=== PATIENT | female | born 1955 | race Caucasian/White ===

== ENCOUNTER 2016-10-21 11:39 | Emergency (ER) | payer MEDICAID ==
[2016-10-21 11:50] VITALS: BMI 28.6
[2016-10-21 12:00] LABS: BASO # 0.1 K/uL (0.0-0.2); BASO % 0.6 % (0.0-2.0); EOS # 0.4 K/uL (0.0-0.7); EOS % 4.7 % (0.0-4.0); HEMATOCRIT 38.6 % (34.0-47.0); LYMPH % 35.5 % (20.0-40.0); MEAN CELL VOLUME 90.9 fL (81.0-99.0); MEAN CORPUSCULAR HEMOGLOBIN 30.3 pg (27.0-31.0); MEAN CORPUSCULAR HGB CONC 33.4 g/dL (33.0-37.0); MONO # 0.6 K/uL (0.0-0.8); MONO % 6.6 % (0.0-10.0); RED CELL DISTRIBUTION WIDTH 14.3 % (11.5-14.5); WHITE BLOOD COUNT 8.5 K/uL (4.8-10.8)
[2016-10-21 12:26] LABS: CHLORIDE 100 mmol/L (98-107)
[2016-10-21 12:27] LABS: POTASSIUM 4.4 mmol/L (3.6-5.2); SODIUM 137 mmol/L (132-148)
[2016-10-21 12:29] LABS: ALB/GLOB RATIO 1.1 (1.0-2.1); ALKALINE PHOSPHATASE 47 U/L (38-126); AST/SGOT 24 U/L (14-36); BILIRUBIN,TOTAL 0.4 mg/dL (0.2-1.3); BLOOD UREA NITROGEN 17 mg/dL (7-17); CARBON DIOXIDE 26 mmol/L (22-30); GFR AFRICAN-AMERICAN > 60; TOTAL PROTEIN 7.5 g/dL (6.3-8.3)
[2016-10-21 12:30] LABS: ALT/SGPT 36 U/L (9-52); CALCIUM 8.9 mg/dl (8.6-10.4); GLUCOSE,RANDOM 120 mg/dL (65-105)
--- NOTE | 2016-10-21 13:55 | C.PDOC ---
History Of Present Illness 61 year old female presents to the ED with complaints of sharp non-radiating right sided chest pain since yesterday. Patient states she has also had a cough for several days which is increasingly productive of white/mckee sputum. She notes the chest pain is mostly to the right mid-upper area and she has not taken anything for it. Denies fever, chills, nausea, vomiting, SOB, or any other complaints at this time. Time Seen by Provider: 10/21/16 13:41 Chief Complaint (Nursing): Chest Pain History Per: Patient History/Exam Limitations: no limitations Onset/Duration Of Symptoms: Days Current Symptoms Are (Timing): Still Present Severity: Mild Quality: Sharp Associated Symptoms: denies: Nausea, Diaphoresis Past Medical History Reviewed: Historical Data, Nursing Documentation, Vital Signs Vital Signs: Last Vital Signs Temp 97.8 F 10/21/16 16:53 Pulse 83 10/21/16 16:53 Resp 24 10/21/16 16:53 BP 121/81 10/21/16 16:53 Pulse Ox 97 10/23/16 18:08 - Medical History PMH: HTN Surgical History: Cholecystectomy Family History: States: Unknown Family Hx - Social History Hx Alcohol Use: No Hx Substance Use: No - Immunization History Hx Tetanus Toxoid Vaccination: No Hx Influenza Vaccination: No Hx Pneumococcal Vaccination: No Review Of Systems Except As Marked, All Systems Reviewed And Found Negative. Constitutional: Negative for: Fever, Chills Cardiovascular: Positive for: Chest Pain. Negative for: Palpitations Respiratory: Positive for: Cough, Sputum. Negative for: Shortness of Breath Gastrointestinal: Negative for: Nausea, Vomiting Musculoskeletal: Negative for: Back Pain Physical Exam - Physical Exam Appears: Non-toxic, No Acute Distress Skin: Normal Color, Warm, Dry Head: Atraumatic, Normacephalic Eye(s): bilateral: Normal Inspection Oral Mucosa: Moist Chest: Symmetrical, No Deformity, Tenderness (+Diffuse left sided chest wall tenderness) Cardiovascular: Rhythm Regular, No Murmur Respiratory: No Accessory Muscle Use, No Rales, Rhonchi (+Diffuse rhonchi), Wheezing (+Scattered wheezing) Gastrointestinal/Abdominal: Soft, No Tenderness, No Distention Extremity: Normal ROM, No Pedal Edema Neurological/Psych: Oriented x3, Normal Speech, Normal Cognition ED Course And Treatment - Laboratory Results Result Diagrams: 10/21/16 11:55 10/21/16 11:55 ECG: Interpreted By Me, Viewed By Me ECG Rhythm: Sinus Rhythm, PVC Interpretation Of ECG: +Poor R wave progression. Rate From EC O2 Sat by Pulse Oximetry: 97 (Room air) Pulse Ox Interpretation: Normal - Radiology CXR: Viewed By Me, Read By Radiologist CXR Interpretation: Yes: Other (Mild venous congestion.). No: Infiltrates Progress Note: CXR, EKG, and Blood work ordered and reviewed. patient treated with DuoNeb and Toradol. Disposition - Disposition Referrals: Tevin Gifford MD [Staff Provider] - Disposition: HOME/ ROUTINE Disposition Time: 17:48 Condition: GOOD Additional Instructions: return to the ED for any new or worsening symptoms Prescriptions: Moxifloxacin [Avelox Tab] 1 tab PO DAILY #6 tab Naproxen [Naprosyn] 1 tab PO BID PRN #25 tab PRN Reason: Pain Prednisone 1 tab PO DAILY #4 tablet Albuterol HFA [Ventolin HFA 90 mcg/actuation (8 g)] 1 puff IH QID PRN #1 puff PRN Reason: Cough Instructions: Chronic Lung Disease and Infection Prevention (ED), COPD ( Chronic Obstructive Pulmonary Disease) (ED), How to Stop Smoking (ED) Print Language: AZERI - Clinical Impression Clinical Impression: COPD exacerbation - Scribe Statement The provider has reviewed the documentation as recorded by the Scribe Kita Haines. Provider Attestation: All medical record entries made by the Scribe were at my direction and personally dictated by me. I have reviewed the chart and agree that the record accurately reflects my personal performance of the history, physical exam, medical decision making, and the department course for this patient. I have also personally directed, reviewed, and agree with the discharge instructions and disposition.
[2016-10-21] MEDS ORDERED: Albuterol-Ipratrop 3 mg / 0.5 (3 ml) UD IH SCH (14:00)
[2016-10-21] MEDS ORDERED: Albuterol-Ipratrop 3 mg / 0.5 (3 ml) UD ONE (14:12)
--- NOTE | 2016-10-21 14:17 | RAD ---
PROCEDURE: CHEST RADIOGRAPH, 1 VIEW HISTORY: chest pain COMPARISON: None available. FINDINGS: LUNGS: Mild venous congestion. PLEURA: No pneumothorax or pleural fluid seen. CARDIOVASCULAR: Normal. OSSEOUS STRUCTURES: No significant abnormalities. VISUALIZED UPPER ABDOMEN: Normal. OTHER FINDINGS: None. IMPRESSION: Mild venous congestion.
[2016-10-21 16:54] VITALS: BP 121/81; PULSE 83; RESP 24; TEMP 97.8
[2016-10-21 17:50] VITALS: O2SAT 97
--- NOTE | 2016-10-22 10:48 | CARD ---
APPROVED REPORT EKG Measurement Heart [id number] MD [id number] [id number] <Conclusion> Sinus rhythm with fusion complexes Anterior infarct, age undetermined Abnormal ECG
== END 2016-10-21 18:23 | disposition home or self-care (01) ==
LOC: C.ER 11:39
DX: J44.1 Chronic obstructive pulmonary disease with (acute) exacerbation (principal)
CPT/HCPCS: 71010; 80053; 84484; 85025; 93005; 96374; 99285; J1885

== ENCOUNTER 2016-12-02 15:46 | Emergency (ER) | payer MEDICAID ==
[2016-12-02 15:46] VITALS: BMI 28.6
[2016-12-02 15:54] VITALS: O2SAT 98
[2016-12-02] MEDS ORDERED: Sodium Chloride 0.9% 500 ML IV ONE (16:38)
[2016-12-02] MEDS ORDERED: Sodium Chloride 0.9% 1,000 ML ONE (16:49)
[2016-12-02 16:55] LABS: BASO % 0.4 % (0.0-2.0); EOS # 0.4 K/uL (0.0-0.7); EOS % 4.4 % (0.0-4.0); HEMATOCRIT 39.2 % (34.0-47.0); LYMPH # 3.3 K/uL (1.0-4.3); LYMPH % 37.5 % (20.0-40.0); MEAN CELL VOLUME 91.1 fL (81.0-99.0); MEAN CORPUSCULAR HEMOGLOBIN 30.5 pg (27.0-31.0); MEAN CORPUSCULAR HGB CONC 33.5 g/dL (33.0-37.0); MEAN PLATELET VOLUME 8.5 fL (7.2-11.7); MONO # 0.5 K/uL (0.0-0.8); MONO % 5.5 % (0.0-10.0); RED CELL DISTRIBUTION WIDTH 13.8 % (11.5-14.5); WHITE BLOOD COUNT 8.7 K/uL (4.8-10.8)
--- NOTE | 2016-12-02 16:55 | RAD ---
HISTORY: RUQ pain. Cough. h/o COPD COMPARISON: Chest x-ray performed 10/21/16 TECHNIQUE: Chest, one view. FINDINGS: LUNGS: Mild basilar atelectasis. No focal consolidation. Please note that chest x-ray has limited sensitivity for the detection of pulmonary masses. PLEURA: No significant pleural effusion identified. No definite pneumothorax . CARDIOVASCULAR: The cardiomediastinal silhouette appears within normal limits of size. OSSEOUS STRUCTURES: No acute osseous abnormality identified. VISUALIZED UPPER ABDOMEN: Unremarkable. OTHER FINDINGS: None. IMPRESSION: Mild basilar atelectasis.
[2016-12-02 17:00] LABS: CHLORIDE 97 mmol/L (98-107)
[2016-12-02 17:01] LABS: SODIUM 136 mmol/L (132-148)
[2016-12-02 17:04] LABS: ALB/GLOB RATIO 1.2 (1.0-2.1); ALKALINE PHOSPHATASE 49 U/L (38-126); ALT/SGPT 36 U/L (9-52); AST/SGOT 25 U/L (14-36); BILIRUBIN,TOTAL 0.5 mg/dL (0.2-1.3); BLOOD UREA NITROGEN 22 mg/dL (7-17); CARBON DIOXIDE 30 mmol/L (22-30); GFR AFRICAN-AMERICAN > 60; GLUCOSE,RANDOM 163 mg/dL (65-105); TOTAL PROTEIN 7.5 g/dL (6.3-8.3)
[2016-12-02 17:05] LABS: CALCIUM 8.9 mg/dl (8.6-10.4)
--- NOTE | 2016-12-02 17:13 | C.PDOC ---
Time Seen by Provider: 12/02/16 16:31 Chief Complaint (Nursing): Abdominal Pain History Per: Patient Onset/Duration Of Symptoms: Days (4), Intermittent Episodes Current Symptoms Are (Timing): Still Present Severity: Moderate Location Of Pain/Discomfort: RUQ Radiation Of Pain To:: Flank Quality Of Discomfort: Sharp, "Pain" Exacerbating Factors: None Alleviating Factors: None Additional History Per: Prior Records Past Medical History Reviewed: Historical Data, Nursing Documentation, Vital Signs Vital Signs: Last Vital Signs Temp 97.8 F 12/02/16 15:51 Pulse 86 12/02/16 15:51 Resp 24 12/02/16 15:51 BP 137/92 H 12/02/16 15:51 Pulse Ox 98 12/02/16 17:13 - Medical History PMH: COPD, HTN Other Surgeries: Hysterectomy Family History: States: Unknown Family Hx - Social History Hx Tobacco Use: Yes Hx Alcohol Use: Yes Hx Substance Use: No - Immunization History Hx Tetanus Toxoid Vaccination: No Hx Influenza Vaccination: No Hx Pneumococcal Vaccination: No Review Of Systems Except As Marked, All Systems Reviewed And Found Negative. Constitutional: Negative for: Fever, Weakness Cardiovascular: Negative for: Chest Pain Respiratory: Positive for: Cough. Negative for: Shortness of Breath, Hemoptysis Gastrointestinal: Positive for: Abdominal Pain. Negative for: Vomiting, Diarrhea Genitourinary: Negative for: Dysuria Musculoskeletal: Negative for: Neck Pain Skin: Negative for: Rash Neurological: Negative for: Weakness, Numbness, Seizures, Altered Mental Status Physical Exam - Physical Exam Appears: Non-toxic, No Acute Distress Skin: Normal Color, Warm, Dry, No Rash Head: Atraumatic, Normacephalic Eye(s): bilateral: PERRL, EOMI Neck: Normal ROM, Supple Cardiovascular: Rhythm Regular Respiratory: Normal Breath Sounds, No Accessory Muscle Use Gastrointestinal/Abdominal: Soft, Tenderness (RUQ) Back: No CVA Tenderness Extremity: Normal ROM, No Calf Tenderness Neurological/Psych: Oriented x3, Normal Motor, Normal Sensation ED Course And Treatment - Laboratory Results Result Diagrams: 12/02/16 16:48 12/02/16 16:48 O2 Sat by Pulse Oximetry: 98 Pulse Ox Interpretation: Normal - Radiology CXR: Viewed By Me, Read By Radiologist CXR Interpretation: Yes: No Acute Disease - CT Scan/US RUQ Sono Other Rad Studies (CT/US): Read By Radiologist, Radiology Report Reviewed CT/US Interpretation: IMPRESSION: Echogenic liver may be seen in setting of hepatic parenchymal disease or fatty infiltration. Reassessment Condition: Improved Progress - Interventions Interventions:: Observation, Intravenous fluid - Medications Administered Intravenous: H-2 adelfo, NSAID - Data Reviewed Data Reviewed: Lab, Diagnostic imaging, Old records - Patient Status Patient status: Mostly improved - Continuity of Care Discussed patient case with:: Patient, ED Nurse - Patient Plan Patient Plan: Discharge, F/U with PCP, Continue present meds Disposition Counseled Patient/Family Regarding: Studies Performed, Diagnosis, Need For Followup, Rx Given, Smoking Cessation - Disposition Referrals: Tevin Gifford MD [Staff Provider] - Disposition: HOME/ ROUTINE Disposition Time: 18:01 Condition: IMPROVED Additional Instructions: Avoid smoking and alcohol. Follow up with your doctor for further evaluation and treatment. Return to the ER if you develop fever, vomiting, bloody or black stools, shortness of breath, worsening of symptoms or if you have any other concerns. Prescriptions: Pantoprazole Sodium [Protonix] 40 mg PO DAILY #14 ect Instructions: Abdominal Pain (ED) - Clinical Impression Clinical Impression: RUQ pain
[2016-12-02 17:40] LABS: RBC URINE < 1 /hpf (0-3); URINE BACTERIA RARE (<OCC); URINE BILIRUBIN NEGATIVE (NEGATIVE); URINE BLOOD NEGATIVE (NEGATIVE); URINE COLOR Yellow (YELLOW); URINE GLUCOSE (UA) 1+ mg/dL (Normal); URINE KETONE NEGATIVE (NEGATIVE); URINE LEUKOCYTE ESTERASE NEG Leu/uL (Negative); URINE PROTEIN NEGATIVE (NEGATIVE); URINE UROBILINOGEN NORMAL mg/dL (0.2-1.0); WBC URINE 1 /hpf (0-5)
--- NOTE | 2016-12-02 17:52 | US ---
HISTORY: RUQ pain COMPARISON: None available TECHNIQUE: Sonographic evaluation of the right upper quadrant of the abdomen. FINDINGS: LIVER: Measures 15.7 cm in length. Echogenic liver may be seen in setting of hepatic parenchymal disease or fatty infiltration. No focal hepatic mass identified. The main portal vein appears patent with normal directional flow. No intrahepatic bile duct dilatation. GALLBLADDER: No gallstones. No gallbladder wall thickening or pericholecystic edema. Negative sonographic Valle's sign as assessed by the [employer]. COMMON BILE DUCT: Measures 4 mm. No stones. No dilatation. PANCREAS: Not well-visualized. RIGHT KIDNEY: Measures 10.5 x 4.7 x 4.8 cm. No obstructing calculus or hydronephrosis identified. AORTA: Limited visualization appears grossly unremarkable. IVC: Limited visualization appears grossly unremarkable. OTHER FINDINGS: None . IMPRESSION: Echogenic liver may be seen in setting of hepatic parenchymal disease or fatty infiltration.
[2016-12-02 18:13] VITALS: BP 153/79; PULSE 81; RESP 22; TEMP 98.5
== END 2016-12-02 18:12 | disposition home or self-care (01) ==
LOC: C.ER 15:46
DX: R10.11 Right upper quadrant pain (principal)
CPT/HCPCS: 71010; 76705; 80053; 81001; 83690; 85025; 96361; 96374; 96375; 99284; J1885; J7040

== ENCOUNTER 2018-10-07 12:20 | Emergency (ER) | payer SELFPAY ==
[2018-10-07 12:21] VITALS: BMI 28.6
[2018-10-07] MEDS ORDERED: Albuterol-Ipratrop 3 mg / 0.5 (3 ml) UD ONE ×2 (12:40→13:46)
[2018-10-07] MEDS ORDERED: Sodium Chloride 0.9% 1,000 ML IV ONE (13:24)
[2018-10-07] MEDS ORDERED: Albuterol-Ipratrop 3 mg / 0.5 (3 ml) UD INH STA (13:24)
[2018-10-07] MEDS ORDERED: Sodium Chloride 0.9% 1,000 ML ONE (13:46)
--- NOTE | 2018-10-07 14:15 | C.PDOC ---
History Of Present Illness 63 year old female presents to the ED for evaluation of dry, non-productive cough for 5 days. Patient reports she lives at home with her brother, child and an infant. She denies sick contacts. Patient admits to smoking one pack per day for many years. Trying to quit, now down to about 5 ciggs/day. She took some NyQuil last night and used one nebulizer treatment yesterday and this morning without relief. Patient denies fever, chills, chest pain, and shortness of breath at this time. Daughter later @ bedside says she brought a child's neb machine to her mother's house and pt has been doing neb treatments for only 2 days for 2 tx's. Time Seen by Provider: 10/07/18 13:12 Chief Complaint (Nursing): Shortness Of Breath History Per: Patient History/Exam Limitations: no limitations Onset/Duration Of Symptoms: Days (5) Current Symptoms Are (Timing): Still Present Exacerbating Factor(s): Coughing Current Respiratory Medications: See Home Med List Associated Symptoms: denies: Fever, Chills, Productive Cough (non-productive cough ) Past Medical History Reviewed: Historical Data, Nursing Documentation, Vital Signs Vital Signs: Last Vital Signs Temp 98.9 F 10/07/18 13:01 Pulse 68 10/07/18 13:01 Resp 18 10/07/18 13:01 BP 122/78 10/07/18 13:01 Pulse Ox 94 L 10/07/18 13:01 - Medical History PMH: COPD, HTN Surgical History: No Surg Hx Family History: States: Unknown Family Hx - Social History Hx Tobacco Use: Yes Hx Alcohol Use: Yes Hx Substance Use: No - Immunization History Hx Tetanus Toxoid Vaccination: No Hx Influenza Vaccination: No Hx Pneumococcal Vaccination: No Review Of Systems Constitutional: Negative for: Fever, Chills Cardiovascular: Negative for: Chest Pain Respiratory: Positive for: Cough. Negative for: Shortness of Breath, Sputum Physical Exam - Physical Exam Appears: Non-toxic, No Acute Distress Skin: Normal Color, Warm, Dry Head: Atraumatic, Normacephalic Eye(s): bilateral: Normal Inspection Oral Mucosa: Moist Neck: Normal ROM, Supple Chest: Symmetrical, No Deformity, No Tenderness Cardiovascular: Rhythm Regular, No Murmur Respiratory: No Rales, No Rhonchi, Wheezing (scant, expiratory ) Extremity: Normal ROM, Capillary Refill (less than 2 seconds ) Neurological/Psych: Oriented x3, Normal Speech, Normal Cognition ED Course And Treatment - Laboratory Results Result Diagrams: 10/07/18 14:45 10/07/18 14:45 Lab Interpretation: Normal (ua neg.) ECG: Interpreted By Me ECG Rhythm: Sinus Rhythm, Nonspecific Changes ECG Interpretation: Normal Rate From EC O2 Sat by Pulse Oximetry: 94 - Radiology CXR: Interpreted by Me CXR Interpretation: Yes: No Acute Disease - Other Rad CXR X-Ray: Viewed By Me, Read By Radiologist Interpretation: IMPRESSION: No significant interval change seen. Left basal discoid atelectasis and/or scarring noted as referenced above. Progress Note: Bloodwork, urinalysis, CXR, EKG ordered and reviewed. Albuterol INH, Solu-Medrol IVP, and IV Fluids given. Reevaluation Time: 15:11 Reassessment Condition: Improved Medical Decision Making Medical Decision Making: copd no pna normal labs Disposition Doctor Will See Patient In The: Office Counseled Patient/Family Regarding: Studies Performed, Diagnosis - Disposition Disposition: HOME/ ROUTINE Disposition Time: 15:11 Condition: GOOD Forms: [employer] ([place]se) - Clinical Impression Clinical Impression: Cough - Scribe Statement The provider has reviewed the documentation as recorded by the Scribe (Vandana Styles) Provider Attestation: All medical record entries made by the Scribe were at my direction and personally dictated by me. I have reviewed the chart and agree that the record accurately reflects my personal performance of the history, physical exam, medical decision making, and the department course for this patient. I have also personally directed, reviewed, and agree with the discharge instructions and d isposition.
[2018-10-07 14:50] LABS: BASO # 0.1 K/uL (0.0-0.2); BASO % 1.1 % (0.0-2.0); EOS % 11.3 % (0.0-4.0); HEMOGLOBIN 14.1 g/dL (11.0-16.0); LYMPH # 3.5 K/uL (1.0-4.3); LYMPH % 38.3 % (20.0-40.0); MEAN CELL VOLUME 93.2 fL (81.0-99.0); MEAN CORPUSCULAR HEMOGLOBIN 30.4 pg (27.0-31.0); MEAN CORPUSCULAR HGB CONC 32.6 g/dL (33.0-37.0); MEAN PLATELET VOLUME 8.5 fL (7.2-11.7); MONO # 0.7 K/uL (0.0-0.8); MONO % 8.1 % (0.0-10.0); NEUT # 3.8 K/uL (1.8-7.0); NEUT % 41.2 % (50.0-75.0); NRBC % 0.1 % (0.0-2.0); RBC 4.63 Mil/uL (3.80-5.20); RED CELL DISTRIBUTION WIDTH 13.7 % (11.5-14.5); WHITE BLOOD COUNT 9.1 K/uL (4.8-10.8)
[2018-10-07 14:55] LABS: SQUAMOUS EPITHIAL 1 /hpf (0-5); URINE BILIRUBIN NEGATIVE (NEGATIVE); URINE BLOOD NEGATIVE (NEGATIVE); URINE CLARITY Clear (Clear); URINE COLOR Yellow (YELLOW); URINE GLUCOSE (UA) 2+ mg/dL (Normal); URINE LEUKOCYTE ESTERASE NEG Leu/uL (Negative); URINE PROTEIN NEGATIVE (NEGATIVE); URINE UROBILINOGEN NORMAL mg/dL (0.2-1.0)
--- NOTE | 2018-10-07 14:55 | RAD ---
Date of service: 10/07/2018 HISTORY: SOB COMPARISON: 12/02/2016 TECHNIQUE: Chest PA and lateral FINDINGS: LUNGS: Trace discoid atelectasis and/or scarring at the left lung base noted. To some extent present previously. No more extensive consolidation noted. PLEURA: No significant pleural effusion identified. No pneumothorax apparent. CARDIOVASCULAR: No aortic atherosclerotic calcification present. Heart size probably top-normal. No pulmonary vascular congestion. OSSEOUS STRUCTURES: Exuberant thoracic spondylosis. VISUALIZED UPPER ABDOMEN: Normal. OTHER FINDINGS: None. IMPRESSION: No significant interval change seen. Left basal discoid atelectasis and/or scarring noted as referenced above.
[2018-10-07 15:05] LABS: ALB/GLOB RATIO 1.2 (1.0-2.1); ALBUMIN 4.6 g/dL (3.5-5.0); ALT/SGPT 16 U/L (9-52); AST/SGOT 21 U/L (14-36); BLOOD UREA NITROGEN 15 mg/dL (7-17); GFR NON-AFRICAN AMERICAN > 60
[2018-10-07 15:17] LABS: B-TYPE NATRIURETIC PEPTIDE 46.3 pg/mL (0-900)
[2018-10-07 15:27] LABS: BARBITURATES, UR NEGATIVE (NEGATIVE); BENZODIAZEPINES, UR NEGATIVE (NEGATIVE); OPIATES, UR NEGATIVE (NEGATIVE); PHENCYCLIDINE, UR NEGATIVE (NEGATIVE)
[2018-10-07 15:32] VITALS: BP 116/67; PULSE 80; RESP 19; TEMP 97.9; O2SAT 95
--- NOTE | 2018-10-08 13:34 | CARD ---
APPROVED REPORT Date of service: 10/07/2018 EKG Measurement Heart [id number] <Conclusion> Normal sinus rhythm Anterior infarct, age undetermined T wave abnormality, consider lateral ischemia Abnormal ECG
== END 2018-10-07 15:38 | disposition home or self-care (01) ==
LOC: C.ER 12:20
DX: R05 Cough (principal); J44.9 Chronic obstructive pulmonary disease, unspecified; I10 Essential (primary) hypertension; F17.210 Nicotine dependence, cigarettes, uncomplicated
CPT/HCPCS: 71046; 80053; 81001; 83880; 84484; 85025; 93005; 96374; 99285; G0480; J2930; J7030